=== PATIENT | male | born 1940 | race Caucasian/White ===

== ENCOUNTER 2016-11-08 08:38 | Outpatient (CLI) | payer MEDICARE ==
--- NOTE | 2016-11-08 10:41 | ULT ---
ULTRASOUND ABDOMEN: History: Esophageal dysphagia, polyps, constipation, splenic artery aneurysm. Post cholecystectomy. FINDINGS: The liver demonstrates homogeneous echotexture without focal mass or ductal dilatation. The spleen m easures 12.5 cm in length. The right kidney measures 9.5 cm in length and the left kidney measures 1 0.1 cm in length. The common duct measures 3 mm in diameter. The patient is post cholecystectomy. Th e pancreas and aorta are partially obscured due to bowel gas. The visualized portions of the pancrea s, aorta, and IVC are normal. The spleen and kidneys are unremarkable. No free fluid is seen. IMPRESSION: Status post cholecystectomy. No significant abnormalities are seen. POS: [facility]
== END 2016-11-08 08:39 | disposition home or self-care (01) ==
LOC: MADULT 08:38
PROVIDERS: ATTEND Internal Medicine Gastroenterology
DX: I72.8 Aneurysm of other specified arteries (principal); K59.09 Other constipation; R13.14 Dysphagia, pharyngoesophageal phase; Z86.010 Personal history of colon polyps; Z80.0 Family history of malignant neoplasm of digestive organs
CPT/HCPCS: 76700

== ENCOUNTER 2017-01-12 12:35 | Emergency (ER) | payer MEDICARE ==
[2017-01-12] MEDS ORDERED: AMOXicillin 250 MG CAP ONE (13:57)
[2017-01-12 14:35] LABS: #Basophils 0.1 thou/uL (0.0-0.2); #Monocytes 0.9 thou/uL (0.11-0.59); #Neutrophils 10.6 thou/uL (1.40-6.50); %Basophils 0.5 % (0.0-1.0); %Eosinophils 0.3 % (0.0-10.0); %Lymphocytes 7.7 % (21.0-51.0); %Monocytes 6.8 % (0.0-10.0); %Neutrophils 84.8 % (42.0-75.0); Hemoglobin 15.8 g/dL (14.0-18.0); Mean Corpuscular HGB CONC 35.2 g/dL (32.0-36.0); Mean Corpuscular Hemoglobin 31.8 pg (27.0-31.0); Mean Corpuscular Volume 90.3 fl (80.0-94.0); Mean Platelet Volume 7.6 fL (7.4-10.4); PTT 28.1 SEC (22.9-36.1); Platelet Count 227 thou/uL (130-400); Prothrombin Time 13.4 SEC (12.0-14.7); RBC Distribution Width 11.5 % (11.5-14.5); Red Blood Cell (RBC) Count 4.98 mill/uL (4.70-6.10); White Blood Cell (WBC) Count 12.6 thou/uL (4.8-10.8)
[2017-01-12 14:46] LABS: ALT (SGPT) 18 U/L (8-55); AST (SGOT) 22 U/L (5-34); Alkaline Phosphatase 81 U/L (40-150); Anion Gap 14 mmol/L (10-20); BUN (Urea Nitrogen) 17 mg/dL (8.4-25.7); Bilirubin, Total 0.5 mg/dL (0.2-1.2); CK (CPK) 104 U/L (30-200); Calc. Creatinine Clearance 0 mL/min (70-130); Calcium 9.1 mg/dL (7.8-10.44); Carbon Dioxide 22 mmol/L (23-31); Chloride 104 mmol/L (98-107); Estimated GFR-MDRD 54; Globulin 2.8 g/dL (2.4-3.5); Glucose 123 mg/dL (83-110); Magnesium 2.3 mg/dL (1.6-2.6); Potassium 4.1 mmol/L (3.5-5.1); Protein, Total 6.8 g/dL (5.8-8.1); Sodium 136 mmol/L (136-145)
[2017-01-12 14:55] LABS: CKMB 4.3 ng/mL (0-6.6); Troponin I 0.015 ng/mL (< 0.028)
--- NOTE | 2017-01-12 14:55 | RAD ---
FRONTAL RADIOGRAPH OF CHEST: Date: 01/12/17 COMPARISON: None. HISTORY: Chest pain. FINDINGS: No pneumothorax, pleural fluid, focal consolidation, or alveolar edema. Heart and mediastinal contou rs unremarkable. IMPRESSION: No acute findings. POS: [facility]
== END 2017-01-12 15:47 | disposition home or self-care (01) ==
LOC: MADERS 12:35
DX: K21.0 Gastro-esophageal reflux disease with esophagitis (principal); E78.5 Hyperlipidemia, unspecified; I10 Essential (primary) hypertension; Z79.899 Other long term (current) drug therapy
CPT/HCPCS: 36415; 71010; 80053; 82553; 83735; 84484; 85025; 85610; 85730; 93005; 94760

== ENCOUNTER 2017-01-22 14:28 | Outpatient (CLI) | payer MEDICARE | END 2017-01-22 14:29 | disposition home or self-care (01) | LOC: MADLAB 14:28 | PROVIDERS: ATTEND Urology | DX: N40.1 Benign prostatic hyperplasia with lower urinary tract symptoms (principal) | CPT/HCPCS: 36415; 82565; 84153 ==

== ENCOUNTER 2021-08-15 14:22 | Outpatient (CLI) | payer MEDICARE | END 2021-08-15 14:23 | disposition home or self-care (01) | LOC: MADCT 14:22 | PROVIDERS: ATTEND Urology | DX: N20.0 Calculus of kidney (principal); K57.30 Diverticulosis of large intestine without perforation or abscess without bleeding; Z90.49 Acquired absence of other specified parts of digestive tract | CPT/HCPCS: 74176 ==